=== PATIENT | male | born 1960 | race African-American/Black ===

== ENCOUNTER 2017-06-10 12:16 | Emergency (ER) | payer SELFPAY | END 2017-06-10 13:40 | disposition home or self-care (01) | LOC: ERS 12:16 | DX: R42 Dizziness and giddiness (principal); F17.200 Nicotine dependence, unspecified, uncomplicated | CPT/HCPCS: 93005 ==

== ENCOUNTER 2017-06-14 12:30 | Emergency (ER) | payer SELFPAY ==
[2017-06-14] MEDS ORDERED: Carbamide Peroxide 6.5% Otic Drops 15 ml Bottle ONE (15:11)
[2017-06-14] MEDS ORDERED: Carbamide Peroxide 6.5% Otic Drops 15 ml Bottle EA EAR SCH (15:15)
--- NOTE | 2017-07-21 00:01 | EKG ---
Test Reason : Blood Pressure : / mmHG Vent. Rate : 069 BPM Atrial Rate : 069 BPM P-R Int : 150 ms QRS Dur : 082 ms QT Int : 420 ms P-R-T Axes : 062 020 052 degrees QTc Int : 450 ms Normal sinus rhythm Normal ECG Confirmed by YANI FARRIS ([id number]), editor continuity and script ULISES CHANDLER ([id number]) on 07/21/2017 12:00:31 AM Referred By: Confirmed By:YANI FARRIS
== END 2017-06-14 16:39 | disposition home or self-care (01) ==
LOC: ERS 12:30
DX: H61.23 Impacted cerumen, bilateral (principal); I10 Essential (primary) hypertension; F17.200 Nicotine dependence, unspecified, uncomplicated
CPT/HCPCS: 93005; 99406

== ENCOUNTER 2017-09-16 15:02 | Emergency (ER) | payer SELFPAY ==
[~2017-09-16 15:02] MED LIST: ISOVUE-370 76%-LOCM 1 ML ONE
[2017-09-16 16:38] LABS: Bilirubin Negative (Negative); Blood, Urine Negative (Negative); Clarity CLEAR (Clear); Glucose, Urine (Dipstick) Negative (Negative); Leukocyte Small (Negative); Nitrite Negative (Negative); Protein, Urine (Dipstick) Negative (Neg-Trace)
[2017-09-16 16:40] LABS: Bacteria/HPF None Seen HPF (None Seen); Hyaline Casts/LPF 0-3 HYALINE CAST LPF (0-3 Hyaline); RBC/HPF None Seen HPF (0-3); Squamous Epithelial None Seen HPF (0-3); WBC/HPF 0-3 HPF (0-3)
--- NOTE | 2017-09-16 17:06 | ULT ---
SCROTAL ULTRASOUND: INDICATIONS: Left-sided testicular pain. TECHNIQUE: Morfin-scale and color-flow with spectral Doppler images were obtained of the scrotum. FINDINGS: The right testicle measures 3.1 x 5.3 x 3 cm. There is normal vascular flow to the right testicle. The visualized right epididymis is normal appearing. The right inguinal region appears within normal limits. The left testicle measures 3.5 x 4.7 x 2.4 cm. There is normal vascular flow to the left testicle. The visualized left epididymis is normal appearing. The visualized left inguinal region is normal ap pearing. IMPRESSION: No intratesticular mass or torsion demonstrated. POS: [facility]
[2017-09-16 17:47] LABS: Hemoglobin 15.6 g/dL (14.0-18.0); Mean Corpuscular Hemoglobin 27.3 pg (27.0-31.0); Mean Platelet Volume 8.7 fL (7.4-10.4); Platelet Count 197 thou/uL (130-400); RBC Distribution Width 12.2 % (11.5-14.5); Red Blood Cell (RBC) Count 5.69 mill/uL (4.70-6.10); White Blood Cell (WBC) Count 5.6 thou/uL (4.8-10.8)
[2017-09-16 18:05] LABS: Eosinophils 2 % (0-10); Lymphocytes 65 % (21-51); MDiff Complete? YES; Monocytes 8 % (0-10); Neutrophil 25 % (42-75); PLT Morphology Comment Appears Adequate
[2017-09-16 18:06] LABS: ALT (SGPT) 55 U/L (8-55); AST (SGOT) 53 U/L (5-34); Albumin 4.3 g/dL (3.5-5.0); Alkaline Phosphatase 63 U/L (40-150); Anion Gap 15 mmol/L (10-20); BUN (Urea Nitrogen) 8 mg/dL (8.4-25.7); Bilirubin, Total 0.9 mg/dL (0.2-1.2); Calc. Creatinine Clearance 0 mL/min (70-130); Calcium 9.2 mg/dL (7.8-10.44); Carbon Dioxide 23 mmol/L (22-29); Chloride 102 mmol/L (98-107); Estimated GFR-MDRD Greater than 90; Globulin 3.3 g/dL (2.4-3.5); Glucose 94 mg/dL (70-105); Potassium 3.4 mmol/L (3.5-5.1); Protein, Total 7.6 g/dL (6.0-8.3); Sodium 137 mmol/L (136-145)
--- NOTE | 2017-09-16 20:25 | CT ---
ABDOMEN CT WITH CONTRAST: PELVIS CT WITH CONTRAST: HISTORY: Evaluate for incarcerated hernia. Abdominal pain. COMPARISON: None. TECHNIQUE: Abdomen and pelvis CT are performed with IV contrast. Coronal reformatted images are submitted for i nterpretation. FINDINGS: ABDOMEN: The lung bases are clear. Heart size is normal. No pericardial effusion. The descending thoracic aorta and abdominal aorta have a normal caliber. No periaortic fat stranding. No gastrohepatic, retrocrural, or periportal lymphadenopathy. No mesenteric mass, lymphadenopathy, free air, or free fluid. Intrahepatic and extrahepatic portal veins are patent. Unremarkable gallbladder. The liver, spleen, pancreas, and adrenal glands have appropriate attenuation and enhancement. No gastrohepatic, retrocrural, or periportal lymphadenopathy. No mesenteric mass, lymphadenopathy, free air, or free fluid. Symmetric enhancement of the kidneys. Bilaterally, no obstructive uropathy. No evidence of a ventra l or lateral abdominal wall hernia. Limited evaluation of the alimentary canal by lack of oral contrast. Gastric mucosa, duodenum, and m ultiple normal caliber small bowel loops are noted. The ileocecal junction is normal. Normal calibe r appendix. Scattered fecal material in a nondistended, nondilated colon. PELVIS: No mass, lymphadenopathy, free air, or free fluid. No lytic or blastic lesions in the osseous structures. Vacuum disk phenomenon at the lumbosacral daisy ction. IMPRESSION: No acute abnormality in the abdomen or pelvis. POS: [facility]
== END 2017-09-16 18:36 | disposition home or self-care (01) ==
LOC: ERS 15:02
DX: S76.011A Strain of muscle, fascia and tendon of right hip, initial encounter (principal); F17.210 Nicotine dependence, cigarettes, uncomplicated; X58.XXXA Exposure to other specified factors, initial encounter
CPT/HCPCS: 74177; 76870; 80053; 81003; 81015; 83605; 85025; 87086; 93976